=== PATIENT | male | born 1955 | race Caucasian/White ===

== ENCOUNTER → 2018-11-04 | Outpatient (CLI) | payer BC ==
--- NOTE | 2018-11-04 16:28 | Diagnostic Imaging Report ---
Exam: Lumbar spine MRI without IV contrast History: Low back pain for 3 to 4 months. Comparison studies: None Technique: Sagittal and axial T2 , sagittal T1 and IR, axial spin density oblique, coronal T2. Intravenous contrast: None Findings: Number of lumbar vertebral bodies: 5. Alignment: Straight lumbar curvature may be positional. Mild lumbar curvature convex to the left. Soft tissues: No T2 hyperintense inflammatory changes. Paraspinal muscles: No signal abnormalities. Well-preserved. No atrophic changes Lower thoracic cord: Normal in signal and morphology. The tip of the conus is at T12-L1. Cauda equina: No masses. No arachnoiditis. Vertebrae: No compression fractures, infection or neoplasm. Degenerative changes: L1-L2: Disc height and disc signal are maintained. Patent canal and foramina. L2-L3: Disc height and disc signal are maintained. Patent canal and foramina. L3-L4: Mild loss of T2 disc signal. Symmetric disc bulge and mild facet arthrosis does not result significant canal or foraminal stenosis. L4-L5: No abnormalities mild loss of T2 disc signal. Symmetric disc bulge and moderate left and mild right facet arthrosis do not result in significant canal or foraminal stenosis. L5-S1: Moderately degenerated disc with annular fissure and loss of disc height and loss of T2 disc signal. Disc osteophyte complex with superimposed tiny disc extrusion which is slightly inferiorly migrated abuts, but does not compress the right S1 nerve root. Very mild bilateral foraminal stenosis. No canal stenosis. Additional findings: Bilateral T2 hyperintense renal lesions, some of these are cysts, others are incompletely evaluated or too small to accurately characterize. Largest cyst in the left kidney within the superior pole measures 2.5 cm. Largest cyst in the right kidney within the inferior pole measures 1.9 cm. Dedicated renal ultrasound further evaluate as clinically warranted. IMPRESSION: 1. Moderately degenerated L5-S1 disc with annular fissure and small central disc extrusion which abuts but does not compress the right S1 nerve root. 2. Mildly degenerated L3-L4 and L4-L5 discs. 3. No significant canal stenosis or foraminal stenosis. 4. Moderate left L4-L5 facet arthrosis. Signed by: Dr. Nik Blake M.D. on 11/04/2018 4:25 PM
== END ==
LOC: MRI 10:06
PROVIDERS: ATTEND Family Medicine
DX: S39.012A Strain of muscle, fascia and tendon of lower back, initial encounter (principal)
CPT/HCPCS: 72148